=== PATIENT | female | born 1970 | race Caucasian/White ===

== ENCOUNTER 2017-09-14 22:41 | Emergency (ER) | payer OTHER ==
[~2017-09-14] VITALS: Ht 162.6 cm; Wt 68.2 kg
[~2017-09-14 22:41] MED LIST: ATARAX,VISTARIL25 MG PO; KENALOG,ARISTOC80 G1 TP; NEXIUM20 MG PO; PREDNISONE20 MG PO
[2017-09-14 23:21] VITALS: BP 141/95
[2017-09-14 23:43] LABS: HEMATOCRIT 39.4 % (36.0-46.0); HEMOGLOBIN 13.2 G/DL (11.9-15.5); MCH 29.9 PG (29.0-34.0); MCHC 33.5 G/DL (30.0-36.0); MCV 89.3 FL (83-99); PLATELET COUNT 225 K/uL (156-360); RBC DIS.WIDTH-CV 14.5 % (11.8-14.6); RBC DIS.WIDTH-SD 47.3 % (39-53); RED BLOOD COUNT 4.41 M/uL (3.80-5.20); WHITE BLOOD COUNT 8.8 K/uL (4.1-10.2)
[2017-09-14 23:49] LABS: APPEARANCE SL.HAZY ((CLEAR)); BILIRUBIN NEGATIVE; BLOOD SMALL; COLOR YELLOW ((YELLOW)); GLUCOSE (STRIP) NEGATIVE; KETONES NEGATIVE; LEUKOCYTES LARGE; NITRITE NEGATIVE; PROTEIN (STRIP) NEGATIVE; SPECIFIC GRAVITY 1.006 (1.000-1.030); UROBILINOGEN 0.2 MG/DL (0.2-1.0)
[2017-09-14 23:52] LABS: CHLORIDE 106 mEq/L (99-109); POTASSIUM 4.5 mEq/L (3.7-5.4); SODIUM 140 mEq/L (136-147)
[2017-09-14 23:54] LABS: BACTERIA RARE /HPF; EPITHELIAL CELLS RARE /HPF; MUCUS TRACE /LPF; UCUL ADDED? YES; WHITE BLOOD CELLS TNTC /HPF (0-5)
[2017-09-14 23:54] LABS: GLUCOSE 103 mg/dL (70-99); TOTAL PROTEIN 6.8 g/dL (6.4-8.3)
[2017-09-14 23:56] LABS: TOTAL BILIRUBIN 0.5 mg/dL (0.0-1.0)
[2017-09-14 23:57] LABS: ALKALINE PHOSPHATASE 105 IU/L (3-129)
[2017-09-14 23:58] LABS: CREATININE 0.8 mg/dL (0.6-1.3); GFR ESTIMATE (CALCULATED) > 59 mL/min/
[2017-09-14 23:59] LABS: AST (GOT) 15 IU/L (2-34); UREA NITROGEN (BUN) 11 mg/dL (9-23)
[2017-09-15] LABS: ALT (GPT) 12 IU/L (3-49)
[2017-09-15 00:07] LABS: QUANTITATIVE HCG < 4.0 MIU/ML
[2017-09-15] MEDS ORDERED: BACTRIM,SEPT1 TABLET PO (00:13)
[2017-09-15] MEDS ORDERED: PYRIDIUM200 MG PO (00:13)
[2017-09-15] MEDS ORDERED: MOTRIN600 MG PO (00:14)
== END 2017-09-15 00:25 | disposition home or self-care (01) ==
LOC: EME 22:41 → RME 22:41
DX: N39.0 Urinary tract infection, site not specified (principal); M54.6 Pain in thoracic spine; F17.200 Nicotine dependence, unspecified, uncomplicated; Z88.0 Allergy status to penicillin
CPT/HCPCS: 80053; 81003; 84702; 85027; 87077; 87086; 87186; 99281; 99284